=== PATIENT | female | born 1970 | race Two or more races ===

== ENCOUNTER 2023-12-22 20:21 | Emergency (ER) | payer BC, OTHER ==
[~2023-12-22] VITALS: Ht 167.6 cm; Wt 80.0 kg
[2023-12-22 21:45] VITALS: PULSE 80; RESP 18; O2SAT 92
[2023-12-22] MEDS: SODIUM CHLORIDE 0.9% 250 ML IV ONE (22:34)
[2023-12-22 23:12] LABS: Basophils # (auto) 0 10 ^3/uL (0-0.2); Basophils % (auto) 0.2 % (0.0-2.0); Eosinophils # (auto) 0 10 ^3/uL (0-0.8); Eosinophils % (auto) 0.4 % (0.0-7.0); Hematocrit 42.9 % (36.0-46.0); Lymphocytes # (auto) 0.9 10 ^3/uL (0.4-5.4); Lymphocytes % (auto) 7.9 % (10.0-50.0); Mean Corpuscular Hemoglobin 27.7 pg (28.0-32.0); Mean Corpuscular Hgb Conc. 32.8 g/dL (32.0-36.0); Mean Corpuscular Volume 84.4 fL (80.0-100.0); Monocytes # (auto) 0.4 10 ^3/uL (0-1.3); Monocytes % (auto) 3.1 % (0.0-12.0); Neutrophils # (auto) 10.4 10 ^3/uL (1.6-8.6); Neutrophils % (auto) 88.4 % (37.0-80.0); Nucleated Red Blood Cells % 0.1 %; Red Blood Cells 5.08 10^6/uL (4.0-5.20); Red Cell Distribution Width 13.6 % (11.8-14.3); White Blood Cell 11.8 10^3/uL (4.4-10.8)
[2023-12-22 23:29] LABS: Alanine Aminotransferase 30 U/L (7-40); Albumin 4.5 g/dL (3.2-4.8); Alkaline Phosphatase 101 U/L (46-116); Anion Gap 10 (5-15); Aspartate Aminotransferase 32 U/L (13-40); BUN/Creatinine Ratio 13.4 (10.0-20.0); Bilirubin, Total 0.3 mg/dL (0.2-1.0); Blood Urea Nitrogen 9 mg/dL (9-23); Calcium 9.7 mg/dL (8.7-10.4); Carbon Dioxide 22 mmol/L (20-30); Chloride 106 mmol/L (98-107); Glucose 115 mg/dL (74-106); Potassium 3.9 mmol/L (3.5-5.1); Sodium 138 mmol/L (136-145); Total Protein 7.4 g/dL (5.7-8.2)
[2023-12-22 23:33] LABS: Lactic Acid w/Reflex 2.1 mmol/L (0.4-2.0)
[2023-12-22 23:36] LABS: Blood Alcohol 6.8 mg/dL (<10)
[2023-12-22] MEDS: SODIUM CHLORIDE 0.9% 1,000 ML IV ONE (23:43)
[2023-12-23] MEDS ORDERED: AMOX875T4 PO (01:28)
[2023-12-23 01:59] VITALS: BP 109/65; PULSE 91; RESP 20; TEMP 97.9; O2SAT 97
== END 2023-12-23 02:01 | disposition home or self-care (01) ==
LOC: EDSEX 20:21 → ER 20:21 → EDBD 20:21 → ER 12-23 02:01
DX: S09.8XXA Other specified injuries of head, initial encounter (principal); R55 Syncope and collapse; Z79.899 Other long term (current) drug therapy; W18.39XA Other fall on same level, initial encounter; Y93.89 Activity, other specified; Y92.091 Bathroom in other non-institutional residence as the place of occurrence of the external cause; Y99.8 Other external cause status
CPT/HCPCS: 36415; 70450; 71045; 72125; 80053; 80320; 83605; 83880; 84484; 85025; 85379; 87040; 93005; 96360; 96361; 99285; J7030